=== PATIENT | male | born 1960 | race Caucasian/White ===

== ENCOUNTER 2018-10-13 02:10 | Inpatient (IN) | payer BC ==
[~2018-10-13] VITALS: Ht 177.8 cm; Wt 93.0 kg
[2018-10-13 02:10] VITALS: BP_SYST 131
--- NOTE | 2018-10-13 02:10 | NUR ---
Patient to ER bed 02 to gown for evaluation. Side rails up.
--- NOTE | 2018-10-13 02:12 | NUR ---
Patient arrived BLS complaining of RLQ abdominal pain starting today with 7/10 pain worsening. Patient Denies any nausea vomiting or diarrhea. Patient was seen at [facility]D today and diagnosed with UTI and given RX for Cipro. No other complaints/injuries per patient or as noted. Will continue to monitor.
[2018-10-13] MEDS ORDERED: NACL 0.9% 1,000 ML IV ONE (02:35)
--- NOTE | 2018-10-13 02:37 | NUR ---
ER Dr. Peña at bedside examining patient.
[2018-10-13] MEDS ORDERED: MORPHINE 2 MG/ML INJ. SYRINGE IVP ONE (02:45)
[2018-10-13] MEDS ORDERED: ONDANSETRON HCL 4 MG/2 ML VIAL IVP ONE ×2 (02:45→14:10)
--- NOTE | 2018-10-13 02:45 | NUR ---
Urine specimen collected and sent to lab for analyzing.
--- NOTE | 2018-10-13 02:49 | NUR ---
Blood cultures drawn, prior to administration of antibiotic.
--- NOTE | 2018-10-13 02:49 | NUR ---
# 20 gauge angiocath placed to RAC. Use of asceptic technique. Opsite placed over site. Blood return noted. Blood for lab drawn from site. Flushed with 10 cc of normal saline. No evidence of infiltration noted. Patient tolerated well.
--- NOTE | 2018-10-13 02:51 | NUR ---
98 mL urinary residual per bladder scanner.
[2018-10-13] MEDS ORDERED: MORPHINE 4 MG/ML INJ. SYRINGE ONE (02:54)
--- NOTE | 2018-10-13 03:08 | NUR ---
Patient off unit to CT scan.
[2018-10-13] MEDS ORDERED: MORPHINE 4 MG/ML INJ. SYRINGE IVP ONE (03:15)
--- NOTE | 2018-10-13 03:15 | NUR ---
Patient returned from CT scan. No acute distress noted.
[2018-10-13 03:21] LABS: BASOPHILS % (AUTO) 0.3 % (0.0-2.0); HEMATOCRIT 50.4 % (36-54); HEMOGLOBIN 17.2 g/dL (14.0-18.0); LYMPHOCYTES # (AUTO) 0.5 K/uL (1.0-5.5); LYMPHOCYTES % (AUTO) 5.1 % (20.5-51.5); MEAN CORPUSCULAR HEMOGLOBIN 32 pg (27-31); MEAN CORPUSCULAR HGB CONC 34 % (32-36); MEAN CORPUSCULAR VOLUME 92 fL (79.0-98.0); MONOCYTES # (AUTO) 0.5 K/uL (0.0-1.0); MONOCYTES % (AUTO) 5.1 % (1.7-9.3); NEUTROPHILS # (AUTO) 9.4 K/uL (1.8-7.7); NEUTROPHILS % (AUTO) 89.5 % (40.0-70.0); PLATELET COUNT (AUTO) 189 K/uL (130-430); RED BLOOD CELL COUNT(AUTO) 5.45 MIL/uL (4.2-6.2); RED CELL DISTRIBUTION WIDTH 12.8 % (9.0-15.0); WHITE BLOOD COUNT (AUTO) 10.4 K/uL (4.8-10.8)
--- NOTE | 2018-10-13 03:25 | NUR ---
Medicated per MD orders. IVF infusing with no s/s of infiltration at this time. Will cont to monitor
[2018-10-13 03:30] LABS: BILIRUBIN,URINE 2+ (NEGATIVE); BLOOD, URINE 1+ (NEGATIVE); COLOR,URINE ORANGE (YELLOW); GLUCOSE,URINE TRACE (NEGATIVE); KETONES,URINE 2+ (NEGATIVE); LEUKOCYTE ESTERASE ,URINE NEGATIVE (NEGATIVE); NITRITE, URINE POSITIVE (NEGATIVE); PH,URINE 5.5 (5.0-8.0); PROTEIN URINE 2+ (NEGATIVE)
[2018-10-13 03:33] LABS: CALCIUM 9.6 mg/dL (8.4-11.0); CREATININE 1.13 mg/dL (0.55-1.30); POTASSIUM 3.6 mmol/L (3.5-5.1)
[2018-10-13 03:39] LABS: ALBUMIN 2.9 g/dL (3.4-4.8); TOTAL BILIRUBIN 2.6 mg/dL (0.0-1.0)
[2018-10-13 03:43] LABS: UROBILINOGEN,URINE >=8 (0.2-1.0)
[2018-10-13 03:44] LABS: CLARITY/URINE SLIGHTLY HAZY (CLEAR)
[2018-10-13 03:59] LABS: BACTERIA,URINE FEW /HPF (None Seen); FINE GRANULAR CASTS,URINE 0-10 /LPF (None Seen)
[2018-10-13] MEDS ORDERED: PIPERACILLIN/TAZO 3.375 GM in NS 50 ML IV ONE (04:00)
[2018-10-13] MEDS: LR 1,000 ML IV SCH ×3 (04:00→20:00)
--- NOTE | 2018-10-13 04:00 | NUR ---
Patient is full code.
[2018-10-13] MEDS ORDERED: PIPERACILLIN/TAZOBACTAM 3.375 GM/VIAL (ZOSYN) IV ONE ×2 (04:42→04:43)
[2018-10-13] MEDS ORDERED: ALLO100T PO (04:43)
[2018-10-13] MEDS ORDERED: LISI10TA5 PO (04:43)
--- NOTE | 2018-10-13 05:08 | NUR ---
Patient will be admitted to care of Dr. Burnham. Admitted to Med Surg unit. Will go to room 114. Belongings list completed. Summary report printed. Report will be given at bedside.
--- NOTE | 2018-10-13 05:25 | NUR ---
Admission Note Received patient from ER with diagnosis of acute appendicitis. Initial Plan of Care discussed-patient verbalized understanding. Family at bedside. Oriented to room, call light, pain management and safety.
[2018-10-13 05:42] VITALS: BP_SYST 127
[2018-10-13] MEDS: MORPHINE 4 MG/ML INJ. SYRINGE IVP PRN ×5 (06:32→20:51)
--- NOTE | 2018-10-13 08:00 | NUR ---
OPENING NOTE: RECEIVED REPORT FROM NIGHT NURSE. PATIENT IS RESTING COMFORTABLY IN BED. NO S/S OF DISTRESS OR SOB. PATIENT IS ALERT AND ORIENTED, ABLE TO EXPRESS NEEDS, AND ASK FOR ASSISTANCE. VITALS SIGNS WNL, ASSESSMENT COMPLETE. AT BEDSIDE. CALL LIGHT IN REACH, BED IN LOWEST POSITION, AND WILL CONTINUE TO MONITOR.
--- NOTE | 2018-10-13 09:00 | NUR ---
PAIN MEDICATION PATIENT MEDICATED ACCORDING TO PRN ORDER. PATIENT EDUCATED ON MEDICATION SIDE EFFECTS AND INSTRUCTED ON USING CALL LIGHT FOR ASSISTANCE. PATIENT VERBALIZED UNDERSTANDING. WILL CONTINUE TO MONITOR.
[2018-10-13 09:33] VITALS: BP_SYST 114
--- NOTE | 2018-10-13 10:34 | NUR ---
RN ROUNDS PATIENT IS RESTING COMFORTABLY IN BED. NO S/S OF DISTRESS OR SOB. PATIENT IS ALERT AND ORIENTED. WAITING FOR DR. CHEN FOR SURGERY ORDERS. NO OTHER NEEDS AT THIS TIME. CALL LIGHT IN REACH, BED IN LOWEST POSITION, AND WILL CONTINUE TO MONITOR.
[2018-10-13 12:00] VITALS: BP_SYST 111
--- NOTE | 2018-10-13 12:00 | NUR ---
RN ROUNDS PATIENT IS RESTING COMFORTABLY IN BED. NO S/S OF DISTRESS OR SOB. PATIENT IS ALERT AND ORIENTED. NO NEEDS EXPRESSED AT THIS TIME. CALL LIGHT IN REACH, BED IN LOWEST POSITION, AND WILL CONTINUE TO MONITOR.
[2018-10-13] MEDS: PIPERACILLIN/TAZO 3.375/DEX-IS 50 ML IV SCH ×3 (12:11→23:38)
--- NOTE | 2018-10-13 13:45 | NUR ---
DR. CHEN HERE TO SEE THE PATIENT, PATIENT TO BE TAKEN TO SURGERY. CONSENT DONE AT BEDSIDE WITH MD. PATIENT EDUCATED ON PRE-SURGERY PREPARATION. AT BEDSIDE.
--- NOTE | 2018-10-13 13:56 | NUR ---
PATIENT TAKEN TO OR.
[2018-10-13] MEDS ORDERED: GLYCOPYRROLATE 0.2 MG/ML VIAL IJ ONE (14:10)
[2018-10-13] MEDS ORDERED: BUPIVACAINE /EPINEPHRINE/PF 0.5% 30 ML VIAL INJ ONE (14:10)
[2018-10-13] MEDS ORDERED: NS 1000 ML IV.SOLN IV ONE (14:10)
[2018-10-13] MEDS ORDERED: MIDAZOLAM HCL 5 MG/5 ML VIAL IVP ONE (14:10)
[2018-10-13] MEDS ORDERED: LR 1,000 ML IV.SOLN IV ONE (14:10)
[2018-10-13] MEDS ORDERED: fentaNYL CITRATE 250 MCG/5 ML AMP IV ONE (14:10)
[2018-10-13] MEDS ORDERED: PROPOFOL 200MG/ 20ML VIAL (DIPRIVAN) IV ONE (14:10)
[2018-10-13] MEDS ORDERED: SUGAMMADEX SODIUM 200 MG/2 ML VIAL IV ONE (14:10)
[2018-10-13] MEDS ORDERED: fentaNYL CITRATE/PF 100 MCG/2 ML AMP IVP ONE (14:10)
[2018-10-13] MEDS ORDERED: SEVOFLURANE 15 MIN GAS INH ONE (14:10)
[2018-10-13] MEDS ORDERED: NEOSTIGMINE METHYLSULFATE 1 MG/ML, 10 ML VIAL IVP ONE (14:10)
[2018-10-13] MEDS ORDERED: WATER FOR IRRIGATION,STERILE 1,000 ML IRRIG.SOLN IR ONE (14:10)
[2018-10-13] MEDS ORDERED: ROCURONIUM BROMIDE 10 MG/ML (ZEMURON) IV ONE (14:10)
[2018-10-13 14:48] LABS: PROTHROMBIN TIME 10.5 SECS (9.5-12.5)
[2018-10-13] MEDS ORDERED: LR 1,000 ML IV SCH (15:40)
[2018-10-13] MEDS ORDERED: METOCLOPRAMIDE HCL 10 MG/2 ML VIAL IVP PRN (15:45)
[2018-10-13] MEDS ORDERED: HYDROmorphone 1 MG INJ. 1 MG/ML AMPUL IVP PRN ×2 (15:45)
[2018-10-13] MEDS ORDERED: HYDROmorphone 2 MG/ML VIAL IVP PRN (15:45)
[2018-10-13 16:45] VITALS: BP_SYST 116
--- NOTE | 2018-10-13 17:00 | NUR ---
Patient back from OR. vital signs started. patient in stable condition.
--- NOTE | 2018-10-13 18:30 | NUR ---
CLOSING NOTE: PATIENT IS RESTING COMFORTABLY IN BED. NO S/S OF DISTRESS OR SOB. PATIENT IS ALERT AND ORIENTED. PATIENT IN STABLE CONDITION. NO COMPLAINTS OF PAIN. PATIENT ON CLEAR LIQUID DIET. SCD'S IN PLACE. ALL NEEDS MET DURING SHIFT. CALL LIGHT IN REACH, BED IN LOWEST POSITION, AND WILL GIVE REPORT TO NIGHT NURSE.
--- NOTE | 2018-10-13 19:44 | NUR ---
INITIAL NOTE AT INITIAL ASSESSMENT, PATIENT IS RESTING IN BED, STABLE, NO SIGNS OF RESPIRATORY DISTRESS. PATIENT VERBALIZES TOLERABLE PAIN. PLAN OF CARE FOR THE EVENING IS COMMUNICATED WITH THE PATIENT. CALL LIGHT- TEACH BACK IS SUCCESSFUL. BED IS LOCKED, ALARMED, AND AT THE LOWEST LEVEL.
[2018-10-13 19:47] VITALS: BP_SYST 118
[2018-10-13] MEDS: ONDANSETRON HCL 4 MG/2 ML VIAL IVP PRN (20:56)
--- NOTE | 2018-10-13 21:42 | NUR ---
OLD IV D/C, NEW IV PLACED OLD IV IS NOTED TO BE INFILTRATED, NEW IV IS PLACED BY CHARGE NURSE MARA ON LEFT FOREARM, 22 GAUGE, 10 MLS NS FLUSHED WITH NO RESISTANCE. PATIENT TOLERATED WELL. IVF ARE CONNECTED PER MD ORDERS.
[2018-10-13] MEDS: metroNIDAZOLE 500 mg/NS 100 ML IV SCH (22:16)
--- NOTE | 2018-10-13 23:40 | NUR ---
NOTE PATIENT IS SLEEPING, STABLE, NO SIGNS OF RESPIRATORY DISTRESS. CALL LIGHT WITHIN REACH. BED IS LOCKED, ALARMED, AND AT THE LOWEST LEVEL.
[2018-10-14 00:57] VITALS: BP_SYST 132
[2018-10-14] MEDS: MORPHINE 4 MG/ML INJ. SYRINGE IVP PRN ×4 (01:17→15:53)
--- NOTE | 2018-10-14 01:27 | NUR ---
INCENTIVE SPIROMETER TEACHING NOTE PATIENT SUCCESSFULLY DEMONSTRATES CORRECT USAGE OF INCENTIVE SPIROMETER. HE IS ABLE TO AVERAGE AROUND 1250 ML AT THIS TIME, HE VERBALIZES UNDERSTANDING TO PRACTICE "10 TIMES AN HOUR TO PREVENT PNEUMONIA". PRN MEDICATION FOR PAIN GIVEN TO PATIENT AT THIS TIME FOR HIS MODERATE PAIN COMPLAINT. PATIENT IS RESTING IN BED, STABLE, NO SIGNS OF RESPIRATORY DISTRESS. CALL LIGHT WITHIN REACH. BED IS LOCKED, AND AT THE LOWEST LEVEL.
--- NOTE | 2018-10-14 03:25 | NUR ---
NOTE PATIENT IS SLEEPING, STABLE, NO SIGNS OF RESPIRATORY DISTRESS. CALL LIGHT WITHIN REACH. BED IS LOCKED, AND AT THE LOWEST LEVEL.
[2018-10-14] MEDS: LR 1,000 ML IV SCH ×3 (04:00→19:42)
[2018-10-14 05:14] VITALS: BP_SYST 132
--- NOTE | 2018-10-14 05:24 | NUR ---
PATIENT ASSISTED TO BATHROOM NOTE PATIENT IS ASSISTED TO THE BATHROOM AT THIS TIME VIA WALKER, HIS GAIT IS STEADY WITH THE WALKER. HE IS STABLE, NO SIGNS OF RESPIRATORY DISTRESS. CALL LIGHT WITHIN REACH. BED IS LOCKED, AND AT THE LOWEST LEVEL.
[2018-10-14] MEDS: PIPERACILLIN/TAZO 3.375/DEX-IS 50 ML IV SCH ×4 (05:37→23:40)
[2018-10-14] MEDS: ONDANSETRON HCL 4 MG/2 ML VIAL IVP PRN (05:38)
--- NOTE | 2018-10-14 06:43 | NUR ---
CLOSING NOTE THROUGHOUT THE NIGHT, PATIENT HAS HAD MINIMAL TO MODERATE PAIN. HE HAS AMBULATED TO BATHROOM WITH WALKER STEADILY THREE TIMES WITH RN DURING THE SHIFT. RIGHT BEE DRAIN HAD TOTAL 125 ML RED DRAINAGE, LEFT BEE DRAIN HAD A TOTAL OF 60 ML RED DRAINAGE. PATIENT IS RESTING IN BED, STABLE, NO SIGNS OF RESPIRATORY DISTRESS. HE HAS BEEN PRACTICING HIS INCENTIVE SPIROMETER. CALL LIGHT WITHIN REACH. BED IS LOCKED, AND AT THE LOWEST LEVEL. WILL CONTINUE TO MONITOR UNTIL SHIFT REPORT IS GIVEN AT BEDSIDE TO AM NURSE. FALL AND SAFETY PRECAUTIONS HAVE BEEN IN PLACE THROUGHOUT THE SHIFT.
[2018-10-14] MEDS: metroNIDAZOLE 500 mg/NS 100 ML IV SCH ×3 (07:35→23:40)
--- NOTE | 2018-10-14 07:35 | NUR ---
Opening Note: Patient laying in bed resting. Patient denies pain and discomfort. Breathing is even and unlabored with no distress noted. IV patent and intact rerunning IVF per MD orders. SCD's in place. Abdominal dressings clean, dry and intact. BEE drains bulb suction maintained. Incentive spirometer at bedside, patient verbalized understanding of use. Safety precautions in place; bed in lowest position, wheels locked, side rails x3, bed alarm activated and call light within reach. No needs at this time. Will continue to monitor.
[2018-10-14 07:40] LABS: ALBUMIN 1.8 g/dL (3.4-4.8); CALCIUM 8.5 mg/dL (8.4-11.0); CREATININE 1.11 mg/dL (0.55-1.30); POTASSIUM 3.7 mmol/L (3.5-5.1); TOTAL BILIRUBIN 4.2 mg/dL (0.0-1.0)
[2018-10-14 08:00] VITALS: BP_SYST 140
[2018-10-14 08:17] LABS: HEMATOCRIT 47.4 % (36-54); HEMOGLOBIN 16.3 g/dL (14.0-18.0); MEAN CORPUSCULAR HEMOGLOBIN 32 pg (27-31); MEAN CORPUSCULAR HGB CONC 34 % (32-36); MEAN CORPUSCULAR VOLUME 94 fL (79.0-98.0); PLATELET COUNT (AUTO) 190 K/uL (130-430); RED BLOOD CELL COUNT(AUTO) 5.05 MIL/uL (4.2-6.2); RED CELL DISTRIBUTION WIDTH 12.5 % (9.0-15.0)
[2018-10-14 08:21] LABS: WHITE BLOOD COUNT (AUTO) 13.2 K/uL (4.8-10.8)
[2018-10-14] MEDS: LISINOPRIL 10 MG TABLET (PRINIVIL) PO SCH (08:44)
[2018-10-14] MEDS: ALLOPURINOL 100 MG TABLET (ZYLOPRIM) PO SCH (08:44)
[2018-10-14] MEDS: LACTOBACILLUS RHAMNOSUS GG 1 CAP CAPSULE PO SCH (08:44)
--- NOTE | 2018-10-14 10:07 | NUR ---
Sohail Burnham: Paged Dr. Burnham, patient having heartburn. Awaiting callback. Addendum: 10/14/18 at 1014 by Radha Wyatt RN Orders received regarding heartburn medication. Orders to be entered by JANEY.
[2018-10-14 10:12] LABS: ATYPICAL LYMPHOCYTES % 0 % (0-0); BAND % (MANUAL) 13 % (0-6); BASOPHILS % (MANUAL) 0 % (0-2); EOSINOPHILS % (MANUAL) 0 % (0-7); LYMPHOCYTES % (MANUAL) 5 % (20-46); MONOCYTES % (MANUAL) 6 % (0-11)
[2018-10-14] MEDS ORDERED: FAMOTIDINE 20 MG TABLET PO ONE (10:15)
[2018-10-14 12:03] VITALS: BP_SYST 142
--- NOTE | 2018-10-14 12:10 | NUR ---
Rounds: Patient laying in bed resting. Patient denies pain and discomfort. Breathing is even and unlabored with no distress noted. IVF running with no signs of infiltration. Morning medications tolerated well. Safety precautions in place and call light within reach. No needs at this time. Will continue to monitor.
--- NOTE | 2018-10-14 14:00 | NUR ---
Rounds: Patient in bed resting. Patient denies pain and discomfort. No distress noted. IV Flagyl running per MD orders, no signs of IV infiltration. No needs at this time. Will continue to monitor.
--- NOTE | 2018-10-14 16:23 | NUR ---
Rounds: Patient laying in bed resting. Patient denies pain and discomfort. Breathing is even and unlabored with no distress noted. IVF running with no signs of infiltration. Safety precautions in place and call light within reach. No needs at this time. Will continue to monitor.
[2018-10-14 18:14] VITALS: BP_SYST 114
--- NOTE | 2018-10-14 18:23 | NUR ---
Patient ambulating: Patient ambulated around west station x3. Steady gait with walker.
--- NOTE | 2018-10-14 18:38 | NUR ---
Closing Note: Patient laying in bed resting. Patient denies pain and discomfort. Breathing is even and unlabored with no distress noted. IV patent and intact running IVF per MD orders, no signs of infiltration. SCD's in place. Abdominal dressings clean, dry and intact. BEE drains patent and intact, bulb suction maintained. Incentive spirometer at bedside, patient using continuously. Safety precautions in place; bed in lowest position, wheels locked, side rails x3, bed alarm activated and call light within reach. All needs met. Will endorse plan of care to NOC, nurse.
[2018-10-14 19:10] VITALS: BP_SYST 105
--- NOTE | 2018-10-14 19:10 | NUR ---
OPENING NOTE RECEIVED ENDORSEMENT REPORT FROM DAY SHIFT NURSE AT BEDSIDE. PT IS AOX4. PT IS AWAKE AND RESTING IN BED COMFORTABLY. CHEST RISE EVEN AND UNLABORED. NO RESPIRATORY DISTRESS NOTED. IV ON LEFT FA, 22G. IV SITE CLEAN, DRY AND INTACT. IVF INFUSING WELL. PT S/P LAPROSCOPIC APPENDECTOMY. 2 INCISION SITE TO ABD. DRESSING CLEAN, DRY AND INTACT. BEE DRAIN TO RIGHT AND LEFT ABD.WALKER AT BEDSIDE. IS AT BEDSIDE. PT ABLE TO INSPIRATE TO 1200, INSTUCTED PT HOW TO USE IS. PT VERBALIZED UNDERSTANDING. PT ORIENTED TO HOSPITAL ROOM. PT VERBALIZED UNDERSTANDING. INSTRUCTED PT TO USE CALL LIGHT/ ROOM PHONE TO CALL FOR ASSISTANCE. SAFETY MEASURES IN PLACE CALL LIGHT/ ROOM PHONE WITHIN REACH, BED IN LOWEST POSITION, BED WHEELS LOCKED, SIDE RAILS UP X3, BED ALARM ON. WILL CONTINUE TO MONITOR PT AND CONTINUE POC.
--- NOTE | 2018-10-14 19:45 | NUR ---
RN ROUNDS PT RESTING IN BED COMFORTABLY. CHEST RISE EVEN AND UNLABORED. NO RESPIRATORY DISTRESS NOTED. SCHEDULED LR ADMINISTERED TO ORDERED RATE. IVF INFUSING WELL. SAFETY MEASURES IN PLACE. WILL CONTINUE TO MONITOR PT AND CONTINUE POC.
[2018-10-14] MEDS: FAMOTIDINE 20 MG TABLET PO SCH (20:05)
--- NOTE | 2018-10-14 21:40 | NUR ---
RN ROUNDS PT RESTING IN BED COMFORTABLY WITH EYES CLOSED. CHEST RISE EVEN AND UNLABORED. NO RESPIRATORY DISTRESS NOTED. NO OTHER NEEDS AT THIS TIME. SAFETY MEASURES IN PLACE. WILL CONTINUE TO MONITOR PT AND CONTINUE POC.
--- NOTE | 2018-10-14 23:45 | NUR ---
RN ROUNDS PT RESTING IN BED COMFORTABLY. CHEST RISE EVEN AND UNLABORED. NO RESPIRATORY DISTRESS NOTED. SCHEDULED MEDICATIONS ADMINISTERED ORDERED. PT TOLERATED WELL. NO OTHER NEEDS AT THIS TIME. SAFETY MEASURES IN PLACE. WILL CONTINUE TO MONITOR PT AND CONTINUE POC.
[2018-10-15 01:31] VITALS: BP_SYST 113
--- NOTE | 2018-10-15 01:45 | NUR ---
RN ROUNDS PT RESTING IN BED COMFORTABLY WITH EYES CLOSED. CHEST RISE EVEN AND UNLABORED. NO RESPIRATORY DISTRESS NOTED. SAFETY MEASURES IN PLACE. WILL CONTINUE TO MONITOR PT AND CONTINUE POC.
--- NOTE | 2018-10-15 03:26 | NUR ---
RN ROUNDS PT RESTING IN BED COMFORTABLY WITH EYES CLOSED. CHEST RISE EVEN AND UNLABORED. NO RESPIRATORY DISTRESS NOTED. IVF INFUSING WELL. SAFETY MEASURES IN PLACE. WILL CONTINUE TO MONITOR PT AND CONTINUE POC.
[2018-10-15] MEDS: LR 1,000 ML IV SCH ×3 (04:51→18:43)
[2018-10-15] MEDS: PIPERACILLIN/TAZO 3.375/DEX-IS 50 ML IV SCH ×4 (05:35→23:58)
[2018-10-15] MEDS: metroNIDAZOLE 500 mg/NS 100 ML IV SCH ×3 (05:35→20:57)
--- NOTE | 2018-10-15 07:41 | NUR ---
opening note pt in bed awake, no distress at this time, ivf infusing well. pt reoriented to call light use, bed alarm in place with bed in the lowest position.
--- NOTE | 2018-10-15 08:04 | NUR ---
CLOSING NOTE ENDORSED PT REPORT TO DAY SHIFT NURSE AT BEDSIDE.PT RESTING IN BED WITH EYES OPEN. CHEST RISE EVEN AND UNLABORED. NO RESPIRATORY DISTRESS NOTED. ALL SCHEDULED MEDICATIONS ADMINISTERED ORDERED. ALL NEEDS MET THROUGHOUT SHIFT. SAFETY MEASURES IN PLACE THROUGHOUT SHIFT. PT CARE ENDORSED.
[2018-10-15 08:15] VITALS: BP_SYST 116
[2018-10-15] MEDS: LACTOBACILLUS RHAMNOSUS GG 1 CAP CAPSULE PO SCH (09:10)
[2018-10-15] MEDS: ALLOPURINOL 100 MG TABLET (ZYLOPRIM) PO SCH (09:10)
[2018-10-15] MEDS: FAMOTIDINE 20 MG TABLET PO SCH ×2 (09:10→20:57)
[2018-10-15] MEDS: LISINOPRIL 10 MG TABLET (PRINIVIL) PO SCH (09:11)
[2018-10-15] MEDS: MORPHINE 4 MG/ML INJ. SYRINGE IVP PRN (09:12)
--- NOTE | 2018-10-15 09:16 | NUR ---
am meds given. pt c/o groin pain given morphine as ordered. safety maintained.
--- NOTE | 2018-10-15 11:35 | NUR ---
ivpb zosyn given at this time. pt denies any pain. safety maintained.
[2018-10-15 12:00] VITALS: BP_SYST 117
--- NOTE | 2018-10-15 14:59 | NUR ---
ivpb Flagyl hung at this time. safety maintained.
--- NOTE | 2018-10-15 15:31 | NUR ---
spoke with dr astorga- updated on pt status- md okayed to advance diet.
[2018-10-15 16:00] VITALS: BP_SYST 132
--- NOTE | 2018-10-15 16:45 | NUR ---
Dietitian Recommendations * Recommend continuing full liquid diet per MD (oral supplement Ensure Enlive TID comes standard w/ current diet, and provides an additional 1050 kcal/day and 60 gm protein/day) * Consider advance to soft (low fiber/bland) diet if/when medically appropriate LP, RD Please refer to Nutrition Assessment for details.
--- NOTE | 2018-10-15 17:40 | NUR ---
ivkristi wilkinson hung at this time.
--- NOTE | 2018-10-15 18:44 | NUR ---
closing note all needs met through shift, safety maintained, will endorse care to night shift manager.
--- NOTE | 2018-10-15 19:10 | NUR ---
Dr. Burnham at the bedside; removed leaking vasu drain. Patient now has 1 vasu drain left.
--- NOTE | 2018-10-15 19:15 | NUR ---
OPENING NOTE Received report from Milli. Patient resting in bed awake, alert, oriented x4. Breathing unlabored and even on room air. No signs of distress, no needs at this time. Fall and safety precautions in place. Bed in lowest position, brake on, call light within reach. IVF infusing as ordered. Will continue to monitor.
[2018-10-15 20:00] VITALS: BP_SYST 131
--- NOTE | 2018-10-15 21:01 | NUR ---
Med pass. IV abx javy.
[2018-10-15] MEDS: NORMAL SALINE 5 ML DISP.SYRIN IVF SCH (22:00)
--- NOTE | 2018-10-15 23:16 | NUR ---
Patient resting in bed awake, alert, oriented x4. Breathing unlabored and even on room air. No signs of distress, no needs at this time. Fall and safety precautions in place. Bed in lowest position, brake on, call light within reach. Will continue to monitor.
--- NOTE | 2018-10-16 | NUR ---
IV abx hung
[2018-10-16 00:56] VITALS: BP_SYST 131
--- NOTE | 2018-10-16 02:31 | NUR ---
Patient resting in bed with eyes closed. Breathing unlabored and even on room air. No signs of distress, no needs at this time. Fall and safety precautions in place. Bed in lowest position, brake on, call light within reach. Will continue to monitor.
[2018-10-16] MEDS: NORMAL SALINE 5 ML DISP.SYRIN IVF SCH (06:46)
[2018-10-16] MEDS: PIPERACILLIN/TAZO 3.375/DEX-IS 50 ML IV SCH (06:47)
[2018-10-16] MEDS: ACETAMINOPHEN 325 MG TABLET PO PRN ×2 (06:52→14:03)
--- NOTE | 2018-10-16 06:53 | NUR ---
Patient c/o pain. Administered PRN tylenol PO as ordered. IV abx hung.
[2018-10-16] MEDS: metroNIDAZOLE 500 mg/NS 100 ML IV SCH (07:24)
--- NOTE | 2018-10-16 07:31 | NUR ---
CLOSING NOTE Gave report to Judi. Patient resting in bed awake, alert, oriented x4. Breathing unlabored and even on room air. No signs of distress, no needs at this time. Fall and safety precautions in place. Bed in lowest position, brake on, call light within reach. Endorsed cares to day shift nurse.
[2018-10-16 07:45] LABS: BASOPHILS % (AUTO) 0.1 % (0.0-2.0); EOSINOPHILS # (AUTO) 0.1 K/uL (0.0-0.4); EOSINOPHILS % (AUTO) 0.7 % (0.0-4.0); HEMATOCRIT 39.3 % (36-54); HEMOGLOBIN 12.7 g/dL (14.0-18.0); LYMPHOCYTES # (AUTO) 0.8 K/uL (1.0-5.5); LYMPHOCYTES % (AUTO) 8.8 % (20.5-51.5); MEAN CORPUSCULAR HEMOGLOBIN 31 pg (27-31); MEAN CORPUSCULAR HGB CONC 32 % (32-36); MEAN CORPUSCULAR VOLUME 95 fL (79.0-98.0); MONOCYTES # (AUTO) 1.1 K/uL (0.0-1.0); MONOCYTES % (AUTO) 11.9 % (1.7-9.3); NEUTROPHILS # (AUTO) 6.8 K/uL (1.8-7.7); NEUTROPHILS % (AUTO) 78.5 % (40.0-70.0); PLATELET COUNT (AUTO) 206 K/uL (130-430); RED BLOOD CELL COUNT(AUTO) 4.15 MIL/uL (4.2-6.2)
[2018-10-16 07:46] LABS: POTASSIUM 3.6 mmol/L (3.5-5.1)
[2018-10-16 07:57] LABS: WHITE BLOOD COUNT (AUTO) 8.8 K/uL (4.8-10.8)
[2018-10-16 08:00] VITALS: BP_SYST 148
--- NOTE | 2018-10-16 08:00 | NUR ---
initial notes rec patient awake alert with ivf infusing well on the l forearm. no infiltration noted. resp easy and unlabored. no acute distress noted. vasu on the l lower side intact with small amount of serous drain. ambulates to the br and evgeny well. 3 sites of incision on the abdomen. denies pain at this time. bed to the lowest position and side rails up and locked. call light withn reached and knows when to call for help.
[2018-10-16] MEDS: ALLOPURINOL 100 MG TABLET (ZYLOPRIM) PO SCH (08:12)
[2018-10-16] MEDS: FAMOTIDINE 20 MG TABLET PO SCH (08:12)
[2018-10-16] MEDS: LACTOBACILLUS RHAMNOSUS GG 1 CAP CAPSULE PO SCH (08:13)
[2018-10-16] MEDS: LISINOPRIL 10 MG TABLET (PRINIVIL) PO SCH (08:13)
--- NOTE | 2018-10-16 10:00 | NUR ---
rounds due meds givem and evgeny well. no sob noted. awaiting for dr astorga and would like to go home. call light within reached.
[2018-10-16] MEDS ORDERED: METR500T PO (12:55)
[2018-10-16] MEDS ORDERED: FAMO20TA8 PO (12:55)
[2018-10-16] MEDS ORDERED: HYDR-4272 PO (12:56)
--- NOTE | 2018-10-16 13:00 | NUR ---
rounds seen by dr astorga and took out vasu. no sob noted. call light within reached.
[2018-10-16 13:28] VITALS: BP_SYST 140
--- NOTE | 2018-10-16 14:05 | NUR ---
closing notes was discharged home after seen by dr astorga. vasu was removed by dr astorga on the left side. ivl and id band was removed. flu shot was given prior to d/c. no sob noted. pt stable and needs attended. was here to tow picker patient. instructed re take home prescription and an appt with dr astorga after the new year.incision site looks dry and clean.
== END 2018-10-16 13:55 | disposition home or self-care (01) | DRG 339 ==
LOC: SED 02:10 → SMU 03:53
PROVIDERS: ADMIT Surgery; ATTEND Surgery
PROC: 0DTJ4ZZ Resection of Appendix, Percutaneous Endoscopic Approach (ICD-10-PCS; principal; 2018-10-14)
DX: K35.33 Acute appendicitis with perforation, localized peritonitis, and gangrene, with abscess (principal); K57.20 Diverticulitis of large intestine with perforation and abscess without bleeding; N39.0 Urinary tract infection, site not specified; K38.1 Appendicular concretions; K56.41 Fecal impaction; I10 Essential (primary) hypertension; F12.90 Cannabis use, unspecified, uncomplicated; K66.0 Peritoneal adhesions (postprocedural) (postinfection); K66.8 Other specified disorders of peritoneum; M10.9 Gout, unspecified
CPT/HCPCS: 36415; 71045; 80048; 80053; 81000-TC; 83605; 85007; 85025; 85027; 85610-TC; 85730-TC; 87040-TC; 87070-TC; 87075-TC; 87081; 87086; 87186-TC; 88304; 90656; 93005; 94010; 96365; 96375; 99285; C1727; C9399; J2250; J2270; J2405; J2543; J2704; J2710; J3010; J3490; J7030; J7120

== ENCOUNTER 2018-12-19 11:45 | Emergency (ER) | payer BC ==
[~2018-12-19] VITALS: Ht 177.8 cm; Wt 90.7 kg
[~2018-12-19 11:45] MED LIST: ALLO100T PO; FAMO20TA8 PO; HYDR-4272 PO; LISI10TA5 PO; METR500T PO
[2018-12-19 12:01] VITALS: BP_SYST 147
--- NOTE | 2018-12-19 12:07 | NUR ---
Patient to ER bed 8 to gown for evaluation. Side rails up. Report given to Turner TOTH.
--- NOTE | 2018-12-19 12:20 | NUR ---
ER Dr. Carrillo at bedside examining patient.
--- NOTE | 2018-12-19 12:25 | NUR ---
Patient ambulated to radiology, accompanied by atmospheric technician.
--- NOTE | 2018-12-19 12:35 | NUR ---
Returned from radiology, back to [facility].
--- NOTE | 2018-12-19 12:36 | NUR ---
Patient is awake, alert, and oriented x4. Patient is complaining of a "bad back." States is states "something went pop this morning" and it hurts. Patient presents with aching back pain 5/10. 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
[2018-12-19] MEDS ORDERED: KETOROLAC TROMETHAMINE 30 MG VIAL IM ONE (12:45)
--- NOTE | 2018-12-19 14:25 | NUR ---
Patient given written and verbal discharge instructions and verbalizes understanding. ER MD discussed with patient the results and treatment provided. Patient in stable condition. ID arm band removed. IV catheter removed intact and dressing applied, no active bleeding.Rx of flexeril and motrin given. Patient educated on pain management and to follow up with PMD. Opportunity for questions provided and answered. Medication side effect fact sheet provided.
[2018-12-19 14:26] VITALS: BP_SYST 142
== END 2018-12-19 14:26 | disposition home or self-care (01) ==
LOC: SED 11:45
DX: S33.5XXA Sprain of ligaments of lumbar spine, initial encounter (principal); Z79.899 Other long term (current) drug therapy; X50.1XXA Overexertion from prolonged static or awkward postures, initial encounter; Y93.89 Activity, other specified; Y92.89 Other specified places as the place of occurrence of the external cause; Y99.8 Other external cause status
CPT/HCPCS: 72100; 96372; 99283; J1885